=== PATIENT | male | born 1980 | race African-American/Black ===

== ENCOUNTER 2020-05-29 03:36 | Emergency (ER) | payer SELFPAY ==
[~2020-05-29] VITALS: Ht 175.3 cm; Wt 86.0 kg
[2020-05-29] MEDS ORDERED: CHLO15MO2 PO (04:28)
[2020-05-29] MEDS ORDERED: HYDR-3165 PO (04:28)
[2020-05-29] MEDS ORDERED: AMOX1TAB61 PO (04:28)
--- NOTE | 2020-05-29 04:29 | PHYS DOC ---
Past History Past Medical History: High Cholesterol, Hypertension Past Surgical History: No Surgical History Smoking: Cigarettes Alcohol Use: Occasionally Drug Use: None General Adult EDM: Chief Complaint: DENTAL PROBLEM HPI: HPI: 40-year-old male presents with 2-3 day history of left upper molar pain. Patie nt reports he took some "leftover antibiotic "from his daughter strep throat which he thinks starts with a "O "for the last day with some improvement however he currently ran out of the antibiotic and now has increased pain. Patient also has been using [id number] ibuprofen, naproxen, and Tylenol without significant relief. Denies fever or chills. Review of Systems: Review of Systems: Constitutional: Denies fever or chills Eyes: Denies redness or eye pain HENT: Denies nasal congestion or sore throat; reports dentalgia Respiratory: Denies cough or shortness of breath Cardiovascular: Denies chest pain or palpitations GI: Denies abdominal pain, nausea, or vomiting : Denies dysuria or hematuria Musculoskeletal: Denies back pain or joint pain Integument: Denies rash or skin lesions Neurologic: Denies headache, focal weakness or sensory changes Complete systems were reviewed and found to be within normal limits, except as documented in this note. Allergies: Allergies: Allergies Coded Allergies Type Severity Reaction Last Updated Verified No Known Drug Allergies 05/29/20 No Physical Exam: PE: Constitutional: Well developed, well nourished, no acute distress, non-toxic appearance HENT: Normocephalic, atraumatic, scattered dental caries, pain to palpation of left maxillary 2nd molar with dental alem noted, no drainable fluctuance noted Eyes: Conjunctiva normal, no discharge Neck: Normal range of motion, no tenderness, supple Lungs & Thorax: No respiratory distress, equal chest rise and fall Skin: Warm, dry, no erythema, no rash Extremities: No tenderness, ROM intact, no edema Neurologic: Alert and oriented X 3, no focal deficits noted Psychologic: Affect normal, judgment normal Current Patient Data: Vital Signs: Vital Signs Date Time Temp Pulse Resp B/P (MAP) Pulse Ox O2 Delivery O2 Flow Rate FiO2 05/29/20 03:41 97.7 93 16 227/129 (161) 100 EKG: EKG: [] Radiology/Procedures: Radiology/Procedures: [] Course & Med Decision Making: Course & Med Decision Making Patient presents with dentalgia with associated dental caries. No drainable abscess noted. Empiric antibiotic initiated. Pain addressed. Patient was n oted to have a significantly elevated blood pressure. Patient reports he has not taken his medication this morning. Repeat blood pressure with some improvement. Patient advised to take his blood pressure medication upon returning home. Patient stable for discharge with outpatient follow-up with PCP to now/dentist. Discussed findings and plan with patient, who acknowledges understanding and agreement. Pérez Disclaimer: Pérez Disclaimer: This electronic medical record was generated, in whole or in part, using a voice recognition dictation system. Departure Departure: Impression: Primary Impression: Dentalgia Additional Impression: Dental caries Disposition: HOME/RESIDENCE PRIOR TO ADM Condition: STABLE Referrals: PCPJANIE (PCP) Patient Instructions: Dental Caries, Toothache-Brief Scripts Chlorhexidine Gluconate (PERIDEX) 15 Ml Mouthwash 15 ML PO BID for Tooth infection, #473 ML 0 Refills Prov: NALDO JENKINS DO 05/29/20 Amoxicillin/Potassium Clav (AUGMENTIN 875-125 TABLET) 1 Each Tablet 1 TAB PO BID for Tooth infection for 7 Days, #14 TAB 0 Refills Prov: NALDO JENKINS DO 05/29/20 Hydrocodone Bit/Acetaminophen (NORCO 5-325 TABLET) 1 Each Tablet 0.5-1 TAB PO Q6HRS PRN for PAIN, #10 TAB Prov: NALDO JENKINS DO 05/29/20 NALDO JENKINS DO May 29, 2020 04:29
[2020-05-29 04:44] VITALS: BP 206/117
[2020-05-29] MEDS ORDERED: AMOXICILLIN/K CLAV 875/125MG TABLET. PO ONE (05:00)
[2020-05-29] MEDS ORDERED: KETOROLAC 30 MG/ML VIAL. IM ONE (05:00)
[2020-05-29] MEDS ORDERED: DEXAMETHASONE 4 MG TABLET PO ONE (05:00)
== END 2020-05-29 04:50 | disposition home or self-care (01) ==
LOC: ER 03:36
DX: K02.9 Dental caries, unspecified (principal); E78.00 Pure hypercholesterolemia, unspecified; I10 Essential (primary) hypertension; F17.210 Nicotine dependence, cigarettes, uncomplicated
CPT/HCPCS: 96372; 99283; J1885; J8540

== ENCOUNTER 2020-06-22 00:25 | Emergency (ER) | payer SELFPAY ==
[~2020-06-22] VITALS: Ht 175.3 cm; Wt 77.2 kg
[~2020-06-22 00:25] MED LIST: AMOX1TAB61 PO; CHLO15MO2 PO; HYDR-3165 PO
--- NOTE | 2020-06-22 02:03 | PHYS DOC ---
Past History Past Medical History: High Cholesterol, Hypertension Past Surgical History: No Surgical History Smoking: Cigarettes Alcohol Use: Occasionally Drug Use: None General Adult EDM: Chief Complaint: DENTAL PROBLEM HPI: HPI: ".. I got bad dental pain... it same tooth as before... " Patient is a 40 year old male who presents with dental pain and hx of inflammation and deep cavity in area of tooth 17. No pointing abscess. Does h ave facial cellulitis and adenopathy. Patient does have a follow-up appointment with dentist this coming week. Patient currently taking Tylenol 3. Has completed a course of antibiotics. Patient denies any trismus. No recent travel. No history of ill contacts. No history immune suppression. Patient follows with Dr. Gordon as a primary. Review of Systems: Review of Systems: Constitutional: Denies fever or chills Eyes: Denies change in visual acuity HENT: Denies nasal congestion or sore throat . Complains of dental pain. Complains of facial cellulitis. Respiratory: Denies cough or shortness of breath Cardiovascular: Denies chest pain or edema GI: Denies abdominal pain, nausea, vomiting, bloody stools or diarrhea : Denies dysuria Musculoskeletal: Denies back pain or joint pain Integument: Denies rash Neurologic: Denies headache, focal weakness or sensory changes Endocrine: Denies polyuria or polydipsia Lymphatic: Denies swollen glands Psychiatric: Denies depression or anxiety Family History: Family History: Noncontributory presentation Current Medications: Current Meds: See nursing for home medications Allergies: Allergies: Allergies Coded Allergies Type Severity Reaction Last Updated Verified No Known Drug Allergies 05/29/20 No Physical Exam: PE: Constitutional: in acute distress, non-toxic appearance. [] HENT: Normocephalic, atraumatic, bilateral external ears normal, oropharynx moist, no oral exudates, nose normal. Multiple areas of dental pain. Does have facial swelling externally. Adenopathy at angle of left mandible. No trismus. Primary area of pain is tooth 17. Eyes: PERRLA, EOMI, conjunctiva normal, no discharge. [] Neck: Normal range of motion, no tenderness, supple, no stridor. [] Cardiovascular:Heart rate regular rhythm, no murmur [] Lungs & Thorax: Bilateral breath sounds equal on auscultation at apex with few scattered wheezes Abdomen: Bowel sounds normal, soft, no tenderness, no masses, no pulsatile masses. [] Skin: Warm, dry, no erythema, no rash. [] Back: No tenderness, no CVA tenderness. [] Extremities: No tenderness, no cyanosis, no clubbing, ROM intact, no edema. [] Neurologic: Alert and oriented X 3, normal motor function, normal sensory function, no focal deficits noted. [] Psychologic: Affect anxious, judgement normal, mood normal. [] EKG: EKG: [] Radiology/Procedures: Radiology/Procedures: [] Heart Score: Risk Factors: Risk Factors: DM, Current or recent (<one month) smoker, HTN, HLP, family history of CAD, obesity. Risk Scores: Score 0 - 3: 2.5% MACE over next 6 weeks - Discharge Home Score 4 - 6: 20.3% MACE over next 6 weeks - Admit for Clinical Observation Score 7 - 10: 72.7% MACE over next 6 weeks - Early Invasive Strategies Course & Med Decision Making: Course & Med Decision Making Pertinent Labs and Imaging studies reviewed. (See chart for details) Patient rinse mouth with Listerine 4 times a day. Patient take Tylenol and ibuprofen for pain. Patient take Keflex 500 mg 3 times a day. Patient follow- up dentist or oral surgeon. Patient advised any treatment tonight emergency department would not fix the underlying problem of the dental decay. Must follow-up with dentist. Follow-up primary care. Return if any concerns. Impression: 1. Dental pain and abscess-area of tooth 17 2. Facial cellulitis. [] Dragon Disclaimer: Draglyndsay Disclaimer: This electronic medical record was generated, in whole or in part, using a voice recognition dictation system. Departure Departure: Disposition: DC HOME SELF CARE/HOMELESS Condition: STABLE Referrals: PRISCILLA GORDON MD (PCP) Scripts Cephalexin (KEFLEX) 500 Mg Capsule 500 MG PO TID for dental abscess for 10 Days, BOTTLE Prov: HARDY HOFFMAN MD 06/22/20 Pérez Disclaimer This chart was dictated in whole or in part using Voice Recognition software in a busy, high-work load, and often noisy Emergency Department environment. It may contain unintended and wholly unrecognized errors or omissions. Dragon Disclaimer This chart was dictated in whole or in part using Voice Recognition software in a busy, high-work load, and often noisy Emergency Department environment. It may contain unintended and wholly unrecognized errors or omissions. HARDY HOFFMAN MD Jun 22, 2020 02:03
[2020-06-22] MEDS ORDERED: CEPH-264 PO (02:08)
[2020-06-22] MEDS ORDERED: ONDANSETRON ODT 4 MG TAB.RAPDIS PO ONE (02:30)
[2020-06-22] MEDS ORDERED: KETOROLAC 60 MG/2 ML VIAL. IM ONE (02:30)
[2020-06-22] MEDS ORDERED: cefTRIAXone IM 1 GM VIAL IM ONE (02:30)
[2020-06-22 02:41] VITALS: BP 160/87
== END 2020-06-22 02:55 | disposition home or self-care (01) ==
LOC: ER 00:25
DX: K04.7 Periapical abscess without sinus (principal); L03.211 Cellulitis of face; E78.00 Pure hypercholesterolemia, unspecified; I10 Essential (primary) hypertension; F17.210 Nicotine dependence, cigarettes, uncomplicated
CPT/HCPCS: 96372; 99284; J0696; J1885; Q0162